=== PATIENT | male | born 2000 ===

== ENCOUNTER 2020-12-27 13:06 | Outpatient (CLI) | payer OTHER | END 2020-12-27 14:13 | disposition home or self-care (01) | LOC: OFIC 805 13:06 | PROVIDERS: ATTEND Otolaryngology Otology & Neurotology | DX: H93.8X2 Other specified disorders of left ear (principal); H61.892 Other specified disorders of left external ear; R09.82 Postnasal drip; H92.02 Otalgia, left ear ==